=== PATIENT | female | born 1990 | race Hispanic/Latino ===

== ENCOUNTER 2023-03-22 08:41 | Outpatient (CLI) | payer BC | END 2023-03-22 08:42 | disposition home or self-care (01) | LOC: MRI 08:41 | PROVIDERS: ATTEND Student in an Organized Health Care Education/Training Program | DX: G51.0 Bell's palsy (principal) | CPT/HCPCS: 70553 ==

== ENCOUNTER 2024-01-02 21:09 | Emergency (ER) | payer BC ==
[2024-01-02 23:03] LABS: #Basophils 0.04 10x3/uL (0.0-0.2); %Basophils 0.4 % (0.0-1.0); %Eosinophils 1.2 % (0.0-10.0); %Lymphocytes 11.9 % (21.0-51.0); %Monocytes 4.2 % (0.0-10.0); %Neutrophils 81.6 % (42.0-75.0); Hematocrit 47.7 % (36.0-47.0); Hemoglobin 16.2 g/dL (12.0-16.0); Mean Corpuscular Hemoglobin 27.7 pg (27.0-31.0); Mean Corpuscular Volume 81.5 fL (78.0-98.0); Mean Platelet Volume 11.5 fL (7.4-10.4); Platelet Count 288 10x3/uL (130-400); Red Blood Cell (RBC) Count 5.85 mill/uL (4.20-5.40)
[2024-01-02 23:11] LABS: BHCG - Serum Negative (NEGATIVE); Pregs Control Background? CLEAR/WHITE (CLR/WHITE); Pregs Control Bar Appear? YES (CONTROL BAR)
[2024-01-02] MEDS ORDERED: Metoclopramide HCl 10 MG (2 mL) VIAL ONE (23:11)
[2024-01-02] MEDS ORDERED: Ketorolac Tromethamine 30 MG (1 mL) VIAL ONE (23:11)
[2024-01-02] MEDS ORDERED: diphenhydrAMINE 50 MG/ML VIAL ONE (23:11)
[2024-01-02 23:19] LABS: ALT (SGPT) 21 U/L (8-55); AST (SGOT) 12 U/L (5-34); Albumin 3.9 g/dL (3.5-5.0); Alkaline Phosphatase 95 U/L (40-110); Anion Gap 15 mmol/L (10-20); BUN (Urea Nitrogen) 15 mg/dL (7.0-18.7); Calc. Creatinine Clearance 0 mL/min (70-130); Calcium 9.5 mg/dL (7.8-10.44); Carbon Dioxide 19 mmol/L (22-29); Chloride 104 mmol/L (98-107); Estimated GFR 111; Globulin 3.6 g/dL (2.4-3.5); Glucose 168 mg/dL (70-105); Potassium 4.2 mmol/L (3.5-5.1); Protein, Total 7.5 g/dL (6.0-8.3); Sodium 134 mmol/L (136-145)
== END 2024-01-03 00:24 | disposition home or self-care (01) ==
LOC: ERS 21:09
DX: R51.9 Headache, unspecified (principal); I10 Essential (primary) hypertension; E11.9 Type 2 diabetes mellitus without complications; Z79.84 Long term (current) use of oral hypoglycemic drugs; Z79.899 Other long term (current) drug therapy
CPT/HCPCS: 36415; 80053; 84703; 85025; 96365; 96375; J1200; J1885; J2765